=== PATIENT | male | born 1960 | race Caucasian/White ===

== ENCOUNTER 2020-01-14 13:22 | Emergency (ER) | payer OTHER, SELFPAY ==
[2020-01-14 13:34] VITALS: BP 148/77; PULSE 69; RESP 16; TEMP 36.6; O2SAT 99
--- NOTE | 2020-01-14 13:36 | ED.MALEGU ---
HPI - Male Genitourinary General Chief complaint: Urogenital-Male Stated complaint: Possible UTI Time Seen by Provider: 01/14/20 13:36 Source: patient and RN notes reviewed History of Present Illness HPI Narrative: Patient is a 59-year-old male that presents the urgent care with complaints of back pain and white matter in the urine . Patient states that he has been having upper mid back pain since last week believing he pulled something at work . However patient states that it has been just on the right side recently and with the white matter in the urine as of last night he was told to be checked for urinary tract infection. Patient denies any burning with urination, frequency, urgency, abdominal pain, fever, nausea, vomiting, difficulty urinating or history of kidney stones. Patient states that he has been taking ibuprofen for the pain. Denies of any blood in the urine. Denies any history of urinary tract infections. No other acute complaints. No acute distress noted. Patient read the plan of care. Related Data Home Medications Medication Instructions Recorded Confirmed No Home Medications 01/14/20 01/14/20 Allergies Allergy/AdvReac Type Severity Reaction Status Date / Time No Known Allergies Allergy Verified 01/14/20 13:25 Review of Systems Review of Systems: Narrative: CONSTITUTIONAL: Denies fever, chills, or sweats. EYES: Denies visual changes, redness, or discharge. ENT: Denies rhinorrhea, congestion, sore throat, or otalgia. CARDIOVASCULAR: Denies chest pain, palpitations, or edema. RESPIRATORY: Denies cough or dyspnea. GASTROINTESTINAL: Denies abdominal pain, nausea, vomiting, or diarrhea. GENITOURINARY: Reports of white matter in the urine SKIN: Denies rash or itching. MUSCULOSKELETAL: Reports of mid right back pain NEUROLOGIC: Denies headache, numbness, or weakness. All other systems reviewed are negative, except as documented in HPI. PMFSH Social History Social History Gender identity (if verbalized by the patient): Male Comments At the time of my signature, I reviewed and agree with the nursing past medical, surgical, social, and family history. There is no relevant family history pertinent to the patient complaint. Exam Narrative: Exam Narrative: GENERAL: This is a well-nourished, well-developed patient, in no apparent distress. HEAD: normocephalic, atraumatic. EYES: PERRL. Sclera clear/white. Vision is grossly intact. EARS: External ears normal NOSE: External nose normal with no obvious nasal discharge THROAT: Mucous membranes moist NECK: Neck supple CARDIOVASCULAR: Regular rate and rhythm without murmurs, gallops, or rubs. RESPIRATORY: Clear to auscultation. Breath sounds equal bilaterally. No wheezes, rales, or rhonchi. GASTROINTESTINAL: Abdomen soft, non-tender, nondistended. SKIN: warm, intact with no suspicious lesions or rash, good texture and turgor. NEURO: awake, alert, and oriented to person, place and time. There were no obvious focal neurologic abnormalities. EXTREMITIES: No clubbing, cyanosis, or edema. BACK: Point tenderness to right mid/thoracic back; negative bilateral CVA tenderness Course Vital Signs Vital signs: Vital Signs Temperature 97.8 F 01/14/20 13:34 Pulse Rate 69 01/14/20 13:34 Respiratory Rate 16 01/14/20 13:34 Blood Pressure 148/77 H 01/14/20 13:34 Pulse Oximetry 99 01/14/20 13:34 Temperature 97.8 F 01/14/20 13:34 Pulse Rate 69 01/14/20 13:34 Respiratory Rate 16 01/14/20 13:34 Blood Pressure 148/77 H 01/14/20 13:34 Pulse Oximetry 99 01/14/20 13:34 Reviewed?patient is informed that they may have pre-hypertension or hypertension based on a blood pressure reading in the department. I recommend the patient call the primary care provider listed on their discharge instructions or a physician of their choice this week to arrange follow-up for further evaluation of possible pre-hypertension or hypertension. MDM - Male Genitou
== END 2020-01-14 14:02 | disposition home or self-care (01) ==
PROVIDERS: Emergency Provider Nurse Practitioner Family
DX: M54.6 Pain in thoracic spine (principal)
CPT/HCPCS: 81003; 87086; 99203; G0463

== ENCOUNTER → 2020-05-15 10:04 | Outpatient (CLI) | payer OTHER, SELFPAY ==
--- NOTE | ~2020-05-15 | MR_ITS ---
EXAMINATION: MR knee LT wo con DATE: 05/15/2020 11:31 INDICATION: Medial left knee pain. TECHNIQUE: Magnetic resonance imaging (MRI) of the left knee was performed without intravenous contra st. Sequences included axial PD-weighted FS FSE, coronal PD-weighted FSE and PD-weighted FS FSE, sagi ttal PD-weighted FSE, and sagittal T2-weighted FS FSE. COMPARISON: None. FINDINGS: Medial compartment: There is a radial tear of posterior horn of medial meniscus. There is shallow partial-thickness carti gemma loss of tibial condyle with mild subchondral edema-like marrow signal intensity. There is deep p artial thickness cartilage loss of femoral condyle involving the central and lateral articular surfac e. Marginal osteophytes are noted. Lateral compartment: Lateral meniscus is intact. There is deep partial thickness cartilage loss of tibial condyle involvin g the central articular surface. There is a 2.5 x 1.9 cm cyst with surrounding edema in proximal tibi a abutting the lateral articular surface and intercondylar eminence that may be an intraosseous gangl ion or subchondral cyst. There is shallow partial-thickness cartilage loss of femoral condyle involvi ng the central articular surface. Marginal osteophytes are noted. Patellofemoral compartment: There is deep partial thickness cartilage loss of patellar medial facet, median ridge, and lateral fa cet with mild subchondral edema-like marrow signal intensity. There is shallow partial-thickness cart ilage loss of central and medial trochlea. Ligaments and tendons: The anterior and posterior cruciate ligaments are normal. Medial collateral ligament and lateral renate ateral ligament complex are normal. The patellar tendon is normal. Fluid: There is a moderate-sized knee joint effusion. There is trace fluid in a Zapata's cyst. There is mild superficial infrapatellar bursitis. IMPRESSION: 1. Moderate tricompartmental chondrosis. 2. Tear of medial meniscus. 3. Moderate-sized knee joint effusion. Reviewed, dictated and finalized at location A.
== END ==
DX: M25.462 Effusion, left knee (principal); S83.242A Other tear of medial meniscus, current injury, left knee, initial encounter; X58.XXXA Exposure to other specified factors, initial encounter
CPT/HCPCS: 73721

== ENCOUNTER 2024-08-01 00:40 | Day surgery (SDC) | payer OTHER, SELFPAY ==
[2024-06-02 09:31] VITALS: BMI 31.5
[2024-08-01 11:44] VITALS: BP 133/79; PULSE 64; RESP 20; TEMP 36.3; O2SAT 99; BMI 32.5
--- NOTE | 2024-08-01 11:55 | P.PNAN_ITS ---
Anes - Initial Pre Proc Eval Procedure: Operation Date: 08/01/24 12:30 Proposed Procedures p Screening Colonoscopy - Matthew Leonardo MD Date/Time: 08/01/24 11:55 Surgeon: Matthew Leonardo MD Pre Op Diagnosis: neoplasm screening Patient Data Age: 64 Gender: M Height: 1.8 m Weight: 105.7 kg Last Vital Signs Temp 97.4 F L 08/01/24 11:44 Pulse 64 08/01/24 11:44 Resp 20 08/01/24 11:44 BP 133/79 08/01/24 11:44 Pulse Ox 99 08/01/24 11:44 O2 Del Method Room Air 08/01/24 11:44 Allergies Allergy/AdvReac Type Severity Reaction Status Date / Time No Known Allergies Allergy Verified 08/01/24 11:43 Home Medications Medication Instructions Recorded Confirmed Type No Home Medications 01/14/20 08/01/24 History Patient hx anesthesia problems: none Family hx anesthesia problems: none Results Review: All pre-operative results and documents have been reviewed as part of the pre- operative evaluation. [facility] Past Medical History Medical History Annual physical exam Encounter for screening for malignant neoplasm of prostate Impaired fasting glucose Lumbar pain Screening cholesterol level Screening for colon cancer Family History Family History Mother Lung cancer Father Parkinson disease Social History Social History Smoking status: Never smoker Alcohol intake: current Drinks per week: 1 Substance use: never Substance use type: does not use Do You Feel Safe in your Home?: Yes Lack of Transportation: No Lack of Food: Never True Current Housing: I Have Housing Concerned About Future Housing: No Difficulty Paying Gas/Electric Bills: No Difficulty Paying for Meds: No Currently Unemployed: No Education: Don't Know Difficulty w/ Childcare or Family Care: No Living arrangements: with family Occupation/Education: occupation Additional occupation/education comments: [employer] Gender identity (if verbalized by the patient): Male Spiritual care concerns: No Agree to blood products: Yes Anes - Eval Final PreProcedure Day of Procedure 08/01/24 11:55 Patient weight: overweight Heart: regular rate and rhythm Lungs: clear to auscultation Airway: Mallampati scale class III Neurological: alert and oriented Last oral intake: >/= 8 hours ASA classification: II Emergent: no Anesthetic plan: proceed Anesthesia type and monitoring: general GIVS and standard monitoring Results Review: All pre-operative results and documents have been reviewed as part of the pre- operative evaluation. Informed Consent: The patient's anesthetic plan and its attendant risks and benefits were discussed with the patient/family/POA. Questions were solicited and answers provided to the satisfaction of the patient/family/POA.
--- NOTE | 2024-08-01 11:56 | PM.HPGS ---
History of Present Illness History of Present Illness Consent: Risks, benefits, and alternatives have been discussed and questions answered. Patient agrees to proceed with procedure. Chief complaint: neoplasm screening Narrative: Eleazar Curry is a 64 year old male here for screening colonoscopy, last one 10 years ago Review of Systems Review of Systems: All systems reviewed & are unremarkable except as noted in HPI and below PMFSH Past Medical History Medical History (Updated 11/30/23 @ 15:14 by Pako Hdez MD) Annual physical exam Encounter for screening for malignant neoplasm of prostate Impaired fasting glucose Lumbar pain Screening cholesterol level Screening for colon cancer Family History Family History (Updated 11/30/23 @ 14:56 by Vi Casillas CMA) Mother Lung cancer Father Parkinson disease Social History Social History (Updated 11/30/23 @ 14:57 by Vi Casillas [facility]) Smoking status: Never smoker Alcohol intake: current Drinks per week: 1 Substance use: never Substance use type: does not use Do You Feel Safe in your Home?: Yes Lack of Transportation: No Lack of Food: Never True Current Housing: I Have Housing Concerned About Future Housing: No Difficulty Paying Gas/Electric Bills: No Difficulty Paying for Meds: No Currently Unemployed: No Education: Don't Know Difficulty w/ Childcare or Family Care: No Living arrangements: with family Occupation/Education: occupation Additional occupation/education comments: [employer] Gender identity (if verbalized by the patient): Male Spiritual care concerns: No Agree to blood products: Yes Meds Home Medications and Allergies Home Medications Medication Instructions Recorded Confirmed Type No Home Medications 01/14/20 08/01/24 History Allergies Allergy/AdvReac Type Severity Reaction Status Date / Time No Known Allergies Allergy Verified 08/01/24 11:43 Vital Signs Vital Signs - 24 hr 08/01/24 11:44 Temperature 97.4 F L Pulse Rate 64 Respiratory Rate 20 Blood Pressure 133/79 Pulse Oximetry 99 Oxygen Delivery Room Air Exam Const: General: comfortable and no acute distress HENMT: Face/Nose/Sinus: Normal nares present Eyes: General: appearance normal, both eyes and all related structures Neck: Neck: no JVD Resp: Auscultation: clear to auscultation bilaterally Cardio: Rate: regular rate Rhythm: regular rhythm GI: Inspection: non-distended GI Palp: Yes Soft to palpation Skin: General skin exam: normal color Neuro: General: gait normal Speech: normal speech Extrem: General: normal to inspection Psych: Mental Status: mental status grossly normal Assessment and Plan Assessment and plan (1) Screening for colon cancer: Code(s): Z12.11 - Encounter for screening for malignant neoplasm of colon Status: Acute Assessment and Plan: colonoscopy
[2024-08-01] MEDS: LACTATED RINGERS 1,000 ML 150 ML IV CONT (12:01)
[2024-08-01 12:21] VITALS: BP 107/67; PULSE 68; RESP 16; O2SAT 96
[2024-08-01 12:31] VITALS: BP 121/78; PULSE 73; RESP 18; O2SAT 96
[2024-08-01 12:41] VITALS: BP 134/80; PULSE 75; RESP 18; O2SAT 96
== END 2024-08-01 12:48 | disposition home or self-care (01) ==
PROVIDERS: PCP Nurse Practitioner Family; Referring Provider Family Medicine; Visit Provider Internal Medicine Gastroenterology
PROC: 0DJD8ZZ Inspection of Lower Intestinal Tract, Via Natural or Artificial Opening Endoscopic (ICD-10-PCS; CPT 45378; principal; 2024-08-01 12:30)
DX: Z12.11 Encounter for screening for malignant neoplasm of colon (principal); Z80.1 Family history of malignant neoplasm of trachea, bronchus and lung
CPT/HCPCS: 45378; J2003; J2704; J7120

== ENCOUNTER 2025-06-26 07:37 | Outpatient (CLI) | payer MEDICARE, OTHER, SELFPAY ==
--- NOTE | ~2025-06-26 | PE_ITS ---
EXAMINATION: PET_PETPSMAST_PT DATE: 06/26/2025 09:43 INDICATION: Prostate cancer TECHNIQUE: 5.136 mCi of Illucix Ga-68([id number]) was administered i.v. Low dose computed tomography (CT) images were acquired from the base of the brain to the base of the brain to the proximal thighs for attenuation correction and anatomic localization. Positron emission tomography (PET) images were acquired in the same distribution beginning 70 minutes after injection. Images including fused PET/CT images were reconstructed in axial, coronal, and sagittal planes. Automated exposure control technique was employed. The dose-length product was 1248.31mGy-cm. COMPARISON: None FINDINGS: Head/neck: Typical pattern of symmetric physiologic increased activity in the lacrimal, parotid and submandibular glands as well as along the mucosa of the nasal and oral cavities, pharynx and hypopharynx. Multinodular goiter with prominent asymmetric nodular enlargement of the left thyroid lobe with prominent in trathoracic extension. There is a small focus of mild uptake with maximal SUV of 7.4 cm within the superior anteromedial aspect of the enlarged left thyroid lobe. No pathologically enlarged cervical lymphadenopathy or suspicious foci of increased uptake in the visualized head or neck. Chest: There are couple small calcified nodules in the left lower lobe and calcified left hilar and mediastinal lymph nodes consistent with old granulomatous disease. No other suspicious pulmonary nodules, pneumonia, pulmonary edema or other pulmonary infiltrates. No pleural effusion. Heart size normal. No pe ricardial effusion. Small amount of atherosclerotic coronary artery calcific lesion. Thoracic aorta is normal in caliber. No pathologically enlarged or PSMA avid thoracic lymphadenopathy. Abdomen/pelvis/proximal thighs: Physiologic renal accumulation and excretion of activity in the kidneys, bladder and along portions of ureters. Normal degree and slightly heterogenous pattern of increased uptake throughout the liver and spleen without radiologic correlate or dominant PSMA avid lesion. The gallbladder, pancreas and bilateral adrenal glands are normal. Moderate uptake scattered throughout the bowels with typical duodenal and proximal jejunal predominance and without radiologic correlate, also likely physiologic. There is mild colonic diverticulosis with a sigmoid predominance and without adjacent inflammatory change to suggest diverticulitis. Mild prostatomegaly measuring approximately 4.5 x 3.1 cm. There are few small foci of increased uptake in the prostate the most prominent on the left with maximal SUV of 5.4. Small bilateral fat-containing inguinal hernias. No other abnormal foci of increased uptake or pathologically enlarged lymphadenopathy in the abdomen, pelvis or proximal thighs. Musculoskeletal: Moderate thoracic spondylosis with bridging osteophytes at multiple levels consistent with diffuse idiopathic skeletal hyperostosis (DISH). No suspicious lytic, blastic or abnormally PSMA avid bone lesions. IMPRESSION: 1. Several small foci of increased uptake in the mildly enlarged prostate consistent with primary prostate cancer. 2. Multinodular goiter with small focus of mild increased uptake in the enlarged left thyroid lobe which can be seen with thyroid nodules both benign or malignant and which is unlikely to represent metastatic disease. Recommend thyroid ultrasound for risk stratification. No other lesions suspicious for metastatic disease. Reviewed, dictated and finalized at location A. IMPRESSION: 1. Several small foci of increased uptake in the mildly enlarged prostate consi stent with primary prostate cancer. 2. Multinodular goiter with small focus of mild increased uptake in the enlarge d left thyroid lobe which can be seen with thyroid nodules both benign or malig nant and which is unlikely to represent metastatic disease. Recommend thyroid u ltrasound for risk stratification. No other lesions suspicious for metastatic d isease.
--- OUTSIDE RECORDS SUMMARY | 2025-06-26 07:43 | XMS_ITS | Clinical Summary ---
Author Organization [facility] Address [address] [place] [id number] Care Team Providers Care It Web Development Consultant Name Role Phone Moraima Cardenas NP Primary Care Provider [phone] Allergies No known active allergies Medications cyclobenzaprine (FLEXERIL) 10 mg tablet 11/01/2024 Active methylPREDNISolone (MEDROL DOSEPACK) 4 mg Dosepack 11/01/2024 Activ e Active Problems Problem Noted Date Diagnosed Date Knee pain 11/02/2014 Immunizations Immunization Administration Dates Next Due Tdap 09/28/2012 Varicella Zoster Immune Globulin 09/28/2012 Surgical History Surgery Date Site/Laterality Comments KNEE ARTHROSCOPY Bilateral Medical History Medical History Date Comments GERD (gastroesophageal reflux disease) Arthritis Family History Medical History Relation Name Comments Parkinsonism Father Family history of Parkinson's disease - (Added by TW Conv) Cancer Mother Thelma Curry Family histor y of malignant neoplasm - (Added by TW Conv) Parkinsonism Mother Thelma Curry Family histor y of Parkinson's disease - (Added by TW Conv) Relation Name Status Comments Father Mother Thelma Curry Social History Tobacco Use Types Packs/Day Years Used Date Smoking Tobacco: Never Cigarettes Smokeless Tobacco: Never Tobacco Cessation:Counseling Given: Not Answered Sex and Gender Information Value Date Recorded Sex Assigned at Not on file 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 Gender Identity Not on file Sexual Orientation Not on file Obstetrics History Last Filed Vital Signs Vital Sign Reading Time Taken Comments Blood Pressure - - Pulse - - Temperature - - Respiratory Rate - - Oxygen Saturation - - Inhaled Oxygen Concentration - - Weight 103.9 kg (229 lb) 09/04/2024 7:51 AM VFX ARTIST Height 180.3 cm (5' 11) 09/04/2024 7:51 AM VFX ARTIST Body Mass Index 31.94 09/04/2024 7:51 AM VFX ARTIST Plan of Treatment Health Maintenance Due Date Last Done Comments Colon Cancer Screening-Colonoscopy 1960 Depression Screening 1960 Fall Risk Assessment 1960 Hepatitis C Screening 1960 Prostate Cancer Screening-PSA 1960 Hepatitis B Screening 1976 Pneumococcal vaccine 65+ (1 of 1 - PCV) 2008 Zoster Vaccine (1 of 2) 2008 DTaP/Tdap/Td Vaccine (2 - Td or Tdap) 09/28/202202/2012 Well Visit 65+ 2023 Influenza Vaccine (#1) 2025 Insurance [facility] Care Teams It Web Development Consultant Relationship Specialty Start Date End Date Moraima Cardenas NP [id number] [id number] PCP - General Nurse Practitioner 11/01/24
--- OUTSIDE RECORDS SUMMARY | 2025-06-26 07:43 | XMS_ITS | Clinical Summary ---
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 Gender Identity Not on file Sexual Orientation Not on file Plan of Treatment Health Maintenance Due Date Last Done Comments Colorectal Cancer Screening Colonoscopy (10 Years) 1960 Hepatitis C 1976 DTaP, Tdap and Td Vaccines ( 1 - Tdap) 1977 Pneumococcal Vaccine: 50+ Ye ars (1 of 1 - PCV) 2008 Zoster Vaccines (1 of 2) 2008 COVID-19 Vaccine ( - 2023-2 5 season) 2024 RSV Immunization or 60+ Years (1 - 1-dose 75+ series) 2033 Meningococcal B Vaccine Aged Out No l onger eligible based on patient's age to complete this topic Meningococcal Vaccine Aged Out No cas malorie eligible based on patient's age to complete this topic RSV Immunizations Under 20 Months Aged Out No longer eligible based on patient's age to complete this topic
== END 2025-06-26 07:38 | disposition home or self-care (01) ==
PROVIDERS: PCP Nurse Practitioner Family; Visit Provider Radiology Radiation Oncology
DX: C61 Malignant neoplasm of prostate (principal); E04.2 Nontoxic multinodular goiter; Z19.1 Hormone sensitive malignancy status; Z51.0 Encounter for antineoplastic radiation therapy
CPT/HCPCS: 78815; A9596

== ENCOUNTER 2025-07-30 11:41 | Outpatient (CLI) | payer MEDICARE, OTHER, SELFPAY ==
--- NOTE | ~2025-07-30 | US_ITS ---
EXAMINATION: US thyroid DATE: 07/30/2025 12:05 INDICATION: Nontoxic single thyroid nodule TECHNIQUE: Multiple ultrasound images of the thyroid were obtained. COMPARISON: None. FINDINGS: The right thyroid lobe measures 6.4 x 2.5 x 2.0 cm. The left thyroid lobe measures 8.3 x 3.8 x 3.5 cm. There is a 3.9 cm solid isoechoic wider than tall nodule with smooth margins and without echogenic foci inferior left thyroid lobe (TI-RADS 3, mildly suspicious , FNA if >=2.5 cm, annual followup is >=1.5 cm). There is a second 3.1 cm Ti RADS 3 nodule in the medial/mid left thyroid lobe with identical imaging features. 1.3 cm solid hypoechoic wider than tall nodule with lobular margins and without echogenic foci in the superior right thyroid lobe (TI-RADS 4, moderately suspicious , FNA if >=1.5 cm, annual followup is >=1 cm). At the lower pole of the right kidney there is a 1.1 cm solid isoechoic TI RADS 3 nodule which is wider than tall with ill-defined margins and without echogenic foci and a second 9 mm very hypoechoic solid TI RADS 4 nodule with smooth margins and without echogenic foci. There is a 1.1 cm Ti RADS 1 cystic nodule in the medial inferior right thyroid lobe. IMPRESSION: 1. Multinodular goiter with 2 similar appearing TI RADS 3 nodules measuring up to 3.1 cm and 3.9 cm in the left thyroid lobe which meet criteria for biopsy. Would recommend ultrasound-guided biopsy of the larger of the 2 nodules and consider annual ultrasound follow-up of the remaining nodules. Reviewed, dictated and finalized at location A. IMPRESSION: 1. Multinodular goiter with 2 similar appearing TI RADS 3 nodules measuring up to 3.1 cm and 3.9 cm in the left thyroid lobe which meet criteria for biopsy. W ould recommend ultrasound-guided biopsy of the larger of the 2 nodules and cons ider annual ultrasound follow-up of the remaining nodules.
== END 2025-07-30 11:42 | disposition home or self-care (01) ==
LOC: MICIMG 11:43
PROVIDERS: PCP Nurse Practitioner Family; Visit Provider Nurse Practitioner Family
DX: E04.2 Nontoxic multinodular goiter (principal)
CPT/HCPCS: 76536

== ENCOUNTER 2025-09-12 12:33 | Outpatient (CLI) | payer MEDICARE, OTHER, SELFPAY ==
--- NOTE | ~2025-09-12 | US_ITS ---
EXAMINATION: US FNA w image guidance DATE: 09/12/2025 13:44 INDICATION: Nontoxic single thyroid nodule TECHNIQUE: A time-out was performed to verify the patient's name, date of , and procedure to be performed. The procedure and its benefits and risks were discussed with the patient. Risks specifically discussed included bleeding and infection. The patient understood the risks and agreed to proceed. The neck was prepped and draped in the usual sterile manner. 4 mL 1% lidocaine was used for local anesthesia. 6 passes were made with a 25G needle into the lesion. Appropriate needle location was documented with continuous sonographic guidance. A sterile bandage was applied. There were no immediate complications. FINDINGS: Grayscale ultrasound images demonstrate biopsy needles advanced into a 4.3 x 3.8 x 2.2 cm solid TI-RADS 3 left thyroid mass. Upon review of prior imaging the previously described as a second 3.1 cm nodule with similar imaging features appears to represent a component of this larger nodule and was also sample during the biopsy. This region of the mass also appears to correspond to the region of increased PSMA activity on the prior PET study. IMPRESSION: 1. Successful ultrasound-guided fine needle aspiration of a 4.3 cm TI-RADS 3 left thyroid mass. Reviewed, dictated and finalized at location [facility]
--- NOTE | 2025-09-12 13:40 | CY_PTH ---
PATIENT: Eleazar Curry LOC: ANHIMG #:[id number] AGE/SX: 65/M ROOM: RE09/12/[address]: Moraima Cardenas APRN : 1960 BED: DIS: 09/12/2025 SPEC #: [id number] RECD: 09/12/25 13:49 STATUS: OLEGARIO RE[place]anaco #: [id number] NELSON: 09/12/25 13:[address]: Moraima Cardenas DEPT: [facility] Cytology RECD BY: Brandi Owen MLT, ([facility]) Tissues: A - FNA Thyroid Procedures: Hematoxylin and Eosin Stain Cell Block Fine Needle Aspiration Evaluation Fna Additional Pass Fine Needle Aspiration Pathologist
--- OUTSIDE RECORDS SUMMARY | 2025-09-12 17:57 | XMS_ITS | Clinical Summary ---
Author Organization [facility] Address [address] [place] [id number] Care Team Providers Care Commercial Real Estate Attorney Name Role Phone Moraima Cardenas NP Primary Care Provider [phone] Allergies No known active allergies Medications cyclobenzaprine (FLEXERIL) 10 mg tablet 11/01/2024 Active methylPREDNISolo ne (MEDROL DOSEPACK) 4 mg Dosepack 11/01/2024 Active hydrocortisone 2.5 % cream APPLY TO BOTH AXILLA TWICE DAILY NEEDED 05/30/2025 Active Active Problems Problem Noted Date Diagnosed Date Knee pain 11/02/2014 Encounters Date Type Department Care Team Description 07/30/[address] [facility] Medicine Orthopaedic Surgery [address] [place] [address] [address] [place] [phone] Rufina Be PA Pain in both knees, unspecified chronicity (Primary Dx) 07/26/[address] [facility] Medicine and [facility] ([facility]) - [facility] [id number] [place] [phone] Andreia Summers NP PT script 07/23/2025 4:00 PM CDT Office Visit 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 Gender Identity Not on file Sexual Orientation Not on file Last Filed Vital Signs Vital Sign Reading Time Taken Comments Blood Pressure - - Pulse - - Temperature - - Respiratory Rate - - Oxygen Saturation - - Inhaled Oxygen Concentration - - Weight 103.9 kg (229 lb) 09/04/2024 7:51 AM PRESS SECRETARY Height 180.3 cm (5' 11) 09/04/2024 7:51 AM PRESS SECRETARY Body Mass Index 31.94 09/04/2024 7:51 AM PRESS SECRETARY Plan of Treatment Health Maintenance Due Date [...] Visit 65+ 2023 Influenza Vaccine (#1) 2025 Procedures Procedure Name Priority Date/Time Associated Diagnosis Comments MI ARTHROCENTESIS ASPIR&/INJ MAJOR JT/BURSA W/O US Routine 07/23/2025 4:00 PM CDT Primary osteoarthritis of both knees from Last 3 Months Results * MI ARTHROCENTESIS ASPIR&/INJ MAJOR JT/BURSA W/O US (07/23/2025 4:00 PM CDT) Narrative uRfina Be PA - 07/23/2025 4:00 PM CDT Rufina Be PA 07/23/2025 4:13 PM Large Joint Injection: bilateral knee Performed by: Rufina Be PA Authorized by: Rufina Be PA Large Joint Injection/Aspiration: Consent Given by: Patient Site marked: the procedure site was marked Verbal consent obtained: Yes Supporting Documentation: Indications: Pain Procedure Details: Location: Knee Site: Bilateral knee Prep: patient was prepped and draped in usual sterile fashion Prep: patient was prepped using a clean technique Needle Size: 21 G Approach: Superior lateral Ultrasound guided: No Fluroscopic guidance: No Medications Right Large Joint Injection: 4 mL BUPivacaine HCl 0.5 % (5 mg/mL); 80 mg triamcinolone 40 mg/mL Medications Left Large Joint Injection: 4 mL BUPivacaine HCl 0.5 % (5 mg/mL); 80 mg triamcinolone 40 mg/mL Patient tolerance: Patient tolerated the procedure well with no immediate complications Rufina BENEDICT IN CLINIC/BEDSIDE OR DERABLES Final Result from Last 3 Months Insurance [facility] MEDICARE [employer] MEDICARE [employer] [place] [employer] Care Teams Commercial Real Estate Attorney Relationship Specialty Start Date End Date Moraima Cardenas NP [address] [place] [address] PCP - General Nurse Practitioner 11/01/24
--- OUTSIDE RECORDS SUMMARY | 2025-09-12 17:57 | XMS_ITS | Clinical Summary ---
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 Gender Identity Not on file Sexual Orientation Not on file Plan of Treatment Health Maintenance Due Date Last Done Comments Colorectal Cancer Screening Colonoscopy (10 Years) 1958 Hepatitis C 1976 DTaP, Tdap and Td Vaccines ( 1 - Tdap) 1977 Pneumococcal Vaccine: 50+ Ye ars (1 of 1 - PCV) 2008 Zoster Vaccines (1 of 2) 2008 COVID-19 Vaccine ( - 2024-2 6 season) 2025 Influenza Adult (#1) 2025 RSV Immunization or 60+ Years (1 - 1-dose 75+ series) 2033 Hepatitis A Vaccines Aged Out No long er eligible based on patient's age to complete this topic Meningococcal B Vaccine Aged Out No l onger eligible based on patient's age to complete this topic Meningococcal Vaccine Aged Out No cas malorie eligible based on patient's age to complete this topic RSV Immunizations Under 20 Months Aged Out No longer eligible based on patient's age to complete this topic
== END 2025-09-12 12:34 | disposition home or self-care (01) ==
PROVIDERS: PCP Nurse Practitioner Family; Visit Provider Nurse Practitioner Family
DX: E04.1 Nontoxic single thyroid nodule (principal)
CPT/HCPCS: 10005; 88172; 88173; 88177; 88305